=== PATIENT | male | born 1985 | race African-American/Black ===

== ENCOUNTER 2016-11-16 16:31 | Inpatient (IN) | payer SELFPAY ==
[~2016-11-16] VITALS: Ht 170.2 cm; Wt 48.4 kg
[~2016-11-16 16:31] MED LIST: ZOFRAN ODT4 MG/UDTAB PO
[2016-11-16 17:25] LABS: ABG CO2 ARTERIAL 19 mmol/L (21-27); ARTERIAL BLD GAS O2 SATURATION 99 % (95-98); ARTERIAL BLOOD GAS PCO2 26 mmHg (32-45); ARTERIAL PO2 143 mmHg (70-100); BICARBONATE 18 mmol/L (21-28); BLOOD GAS BASE EXCESS -4 mM/L (-/+3); PH 7.45 Units (7.35-7.45)
[2016-11-16 17:59] LABS: BASO % 0.2 % (0-2); HCT-HEMATOCRIT 44.7 % (36.0-53.5); HGB-HEMOGLOBIN 15.9 gm/dl (13.5-17.0); IMMATURE GRANULOCYTES ABSOLUTE 0.01 tho/cmm (0-0.03); IMMATURE GRANULOCYTES PERCENT 0.2 % (0-0.3); LYMPH % 20.3 % (20-45); MCH (MEAN CORPUSCULAR HGB) 32.4 pg (28.0-32.0); MCHC MEAN CORPUSCULAR HGB CONC 35.6 % (32.0-36.0); MCV (MEAN CELL VOLUME) 91.2 fl (82.0-96.0); MEAN PLATELET VOLUME 10.9 cmc (9.4-12.4); MONO % 5.8 % (0-12); MONOCYTE ABSOLUTE COUNT 0.3 tho/cmm (0.0-1.2); NEUTROPHIL ABSOLUTE COUNT 3.4 tho/cmm (1.6-8.0); NEUTROPHIL-AUTOMATED 3.4 tho/cmm (1.6-8.0); NEUTROPHILS % 73.5 % (40-80); PLATELET COUNT 165 tho/cmm (150-450); RED CELL DISTRIBUTION WIDTH 12.7 % (12.4-16.4); WHITE BLOOD COUNT 4.7 tho/cmm (4.0-10.0)
[2016-11-16 18:10] LABS: ALB/GLOB RATIO 1.2 (0.8-2.0); ALBUMIN 3.6 g/dl (3.5-5.0); ALKALINE PHOSPHATASE 54 U/L (33-138); ALT/SGPT 38 U/L (12-78); BILIRUBIN,TOTAL 0.9 mg/dl (0.0-1.5); BLOOD UREA NITROGEN 8 mg/dl (6-24); CALCIUM 8.1 mg/dl (8.5-10.5); CARBON DIOXIDE-VENOUS 18 mmol/L (22-32); CHLORIDE 118 mmol/l (96-110); CREATININE 1.04 mg/dl (0.60-1.30); GLUCOSE 115 mg/dL (70-110); PHOSPHOROUS 2.2 mg/dl (2.5-4.9); SODIUM 146 mmol/L (135-145); eGFR VALUE FOR BLACK >90 mL/Min
[2016-11-16 18:13] LABS: ANION GAP 14 mmol/L (0-20); AST/SGOT 32 U/L (10-40); MAGNESIUM 2.1 mg/dl (1.8-2.6); POTASSIUM 4.3 mmol/L (3.7-5.1)
[2016-11-16 19:26] LABS: INR 1.1 INR (0.9-1.1)
[2016-11-16 19:57] LABS: ACETAMINOPHEN LEVEL <2.0 ug/ml (10-30); SALICYLATE <2.8 mg/dl (2.8-20)
[2016-11-17] MEDS ORDERED: NO HOME MEDICATION (00:21)
[2016-11-17 05:51] LABS: ABG CO2 ARTERIAL 21 mmol/L (21-27); ARTERIAL BLD GAS O2 SATURATION 98 % (95-98); ARTERIAL BLOOD GAS PCO2 32 mmHg (32-45); ARTERIAL PO2 118 mmHg (70-100); BICARBONATE 20 mmol/L (21-28); BLOOD GAS BASE EXCESS -3 mM/L (-/+3); PH 7.42 Units (7.35-7.45)
--- NOTE | 2016-11-17 05:57 | NUR ---
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 LATER ON DURING MY SHIFT I GOT A CALL FROM OFFICER ALBA STATING THAT THE PATIENTS BLACK RIPPED UNDERSHIRT, BLACK BUTTON UP SHIRT AND BLACK JEANS ARE MISSING AND THAT THEY NEED IT FOR EVIDENCE. TOLD OFFICER THAT I WAS TOLD BY THE DAY SHIFT RN THAT THE OFFICERS HAD ALL OF THE PATIENTS CLOTHING. WILL PASS ON TODAYS DAY SHIFT RN TO HAVE THE CHARGE CALL YESTERDAYS AM NURSE TO VERIFY LOCATION OF PATIENTS BLACK RIPPED UNDERSHIRT, BLACK BUTTON UP SHIRT, AND BLACK JEANS.
[2016-11-17 07:57] LABS: BASO % 0.2 % (0-2); IMMATURE GRANULOCYTES ABSOLUTE 0.01 tho/cmm (0-0.03); IMMATURE GRANULOCYTES PERCENT 0.2 % (0-0.3); LYMPH % 11.3 % (20-45); LYMPH ABSOLUTE COUNT 0.5 tho/cmm (0.8-4.5); MCH (MEAN CORPUSCULAR HGB) 31.5 pg (28.0-32.0); MCHC MEAN CORPUSCULAR HGB CONC 34.2 % (32.0-36.0); MEAN PLATELET VOLUME 10.6 cmc (9.4-12.4); MONO % 9.1 % (0-12); MONOCYTE ABSOLUTE COUNT 0.4 tho/cmm (0.0-1.2); NEUTROPHIL ABSOLUTE COUNT 3.7 tho/cmm (1.6-8.0); NEUTROPHIL-AUTOMATED 3.7 tho/cmm (1.6-8.0); NEUTROPHILS % 79.2 % (40-80); PLATELET COUNT 110 tho/cmm (150-450); RED BLOOD COUNT 4.13 mil/cmm (4.40-5.70); RED CELL DISTRIBUTION WIDTH 13.1 % (12.4-16.4); WHITE BLOOD COUNT 4.6 tho/cmm (4.0-10.0)
[2016-11-17 08:08] LABS: ANION GAP 15 mmol/L (0-20); BLOOD UREA NITROGEN 14 mg/dl (6-24); CALCIUM 7.1 mg/dl (8.5-10.5); CARBON DIOXIDE-VENOUS 20 mmol/L (22-32); CHLORIDE 119 mmol/l (96-110); CREATININE 0.64 mg/dl (0.60-1.30); GLUCOSE 105 mg/dL (70-110); POTASSIUM 3.8 mmol/L (3.7-5.1); SODIUM 150 mmol/L (135-145); eGFR VALUE FOR BLACK >90 mL/Min
--- NOTE | 2016-11-17 18:25 | NUR ---
NOTIFIED ALBA WITH [employer]. PATIENT ADMITTED WITH NO PANTS, NO SHIRT - ONLY SOCKS, [employer] SHORTS, AND UNDERWEAR PER ADMITTING RN Bentley REDDY.
[2016-11-17 22:49] LABS: ANION GAP 10 mmol/L (0-20); BLOOD UREA NITROGEN 16 mg/dl (6-24); CALCIUM 7.8 mg/dl (8.5-10.5); CARBON DIOXIDE-VENOUS 22 mmol/L (22-32); CHLORIDE 115 mmol/l (96-110); CREATININE 0.84 mg/dl (0.60-1.30); GLUCOSE 111 mg/dL (70-110); SODIUM 143 mmol/L (135-145); eGFR VALUE FOR BLACK >90 mL/Min
[2016-11-18 06:27] LABS: ABG CO2 ARTERIAL 21 mmol/L (21-27); ARTERIAL BLD GAS O2 SATURATION 95 % (95-98); ARTERIAL BLOOD GAS PCO2 35 mmHg (32-45); ARTERIAL PO2 79 mmHg (70-100); BICARBONATE 20 mmol/L (21-28); BLOOD GAS BASE EXCESS -4 mM/L (-/+3); PH 7.37 Units (7.35-7.45)
[2016-11-18 07:11] LABS: BASO % 0.2 % (0-2); EOS % 0.8 % (0-7); EOSINOPHIL ABSOLUTE COUNT 0.1 tho/cmm (0.0-0.7); HCT-HEMATOCRIT 39.8 % (36.0-53.5); HGB-HEMOGLOBIN 13.9 gm/dl (13.5-17.0); IMMATURE GRANULOCYTES ABSOLUTE 0.01 tho/cmm (0-0.03); IMMATURE GRANULOCYTES PERCENT 0.2 % (0-0.3); LYMPH % 24.5 % (20-45); LYMPH ABSOLUTE COUNT 1.5 tho/cmm (0.8-4.5); MCH (MEAN CORPUSCULAR HGB) 32.2 pg (28.0-32.0); MCHC MEAN CORPUSCULAR HGB CONC 34.9 % (32.0-36.0); MCV (MEAN CELL VOLUME) 92.1 fl (82.0-96.0); MEAN PLATELET VOLUME 11.5 cmc (9.4-12.4); MONO % 15.2 % (0-12); MONOCYTE ABSOLUTE COUNT 0.9 tho/cmm (0.0-1.2); NEUTROPHIL ABSOLUTE COUNT 3.5 tho/cmm (1.6-8.0); NEUTROPHIL-AUTOMATED 3.5 tho/cmm (1.6-8.0); NEUTROPHILS % 59.1 % (40-80); PLATELET COUNT 101 tho/cmm (150-450); RED BLOOD COUNT 4.32 mil/cmm (4.40-5.70); RED CELL DISTRIBUTION WIDTH 13.3 % (12.4-16.4)
[2016-11-18 07:20] LABS: ANION GAP 9 mmol/L (0-20); BLOOD UREA NITROGEN 17 mg/dl (6-24); CALCIUM 7.9 mg/dl (8.5-10.5); CARBON DIOXIDE-VENOUS 22 mmol/L (22-32); CHLORIDE 114 mmol/l (96-110); GLUCOSE 106 mg/dL (70-110); POTASSIUM 4.1 mmol/L (3.7-5.1); SODIUM 141 mmol/L (135-145); eGFR VALUE FOR BLACK >90 mL/Min
[2016-11-18 10:16] LABS: ABG CO2 ARTERIAL 22 mmol/L (21-27); ARTERIAL BLD GAS O2 SATURATION 97 % (95-98); ARTERIAL BLOOD GAS PCO2 40 mmHg (32-45); ARTERIAL PO2 98 mmHg (70-100); BICARBONATE 21 mmol/L (21-28); BLOOD GAS BASE EXCESS -4 mM/L (-/+3); PH 7.33 Units (7.35-7.45)
[2016-11-19 04:04] LABS: EOS % 1.1 % (0-7); EOSINOPHIL ABSOLUTE COUNT 0.1 tho/cmm (0.0-0.7); HCT-HEMATOCRIT 36.7 % (36.0-53.5); HGB-HEMOGLOBIN 12.8 gm/dl (13.5-17.0); IMMATURE GRANULOCYTES ABSOLUTE 0.02 tho/cmm (0-0.03); IMMATURE GRANULOCYTES PERCENT 0.4 % (0-0.3); LYMPH % 16.8 % (20-45); LYMPH ABSOLUTE COUNT 0.8 tho/cmm (0.8-4.5); MCH (MEAN CORPUSCULAR HGB) 31.8 pg (28.0-32.0); MCHC MEAN CORPUSCULAR HGB CONC 34.9 % (32.0-36.0); MCV (MEAN CELL VOLUME) 91.1 fl (82.0-96.0); MEAN PLATELET VOLUME 11.5 cmc (9.4-12.4); MONO % 14.9 % (0-12); MONOCYTE ABSOLUTE COUNT 0.7 tho/cmm (0.0-1.2); NEUTROPHIL ABSOLUTE COUNT 3.1 tho/cmm (1.6-8.0); NEUTROPHIL-AUTOMATED 3.1 tho/cmm (1.6-8.0); NEUTROPHILS % 66.8 % (40-80); PLATELET COUNT 76 tho/cmm (150-450); RED BLOOD COUNT 4.03 mil/cmm (4.40-5.70); RED CELL DISTRIBUTION WIDTH 12.9 % (12.4-16.4); WHITE BLOOD COUNT 4.6 tho/cmm (4.0-10.0)
[2016-11-19 04:23] LABS: ANION GAP 8 mmol/L (0-20); BLOOD UREA NITROGEN 9 mg/dl (6-24); CALCIUM 7.6 mg/dl (8.5-10.5); CARBON DIOXIDE-VENOUS 25 mmol/L (22-32); CHLORIDE 113 mmol/l (96-110); GLUCOSE 98 mg/dL (70-110); POTASSIUM 3.8 mmol/L (3.7-5.1); SODIUM 142 mmol/L (135-145); eGFR VALUE FOR BLACK >90 mL/Min
[2016-11-19 19:44] LABS: EOS % 0.6 % (0-7); HGB-HEMOGLOBIN 12.1 gm/dl (13.5-17.0); IMMATURE GRANULOCYTES ABSOLUTE 0.01 tho/cmm (0-0.03); IMMATURE GRANULOCYTES PERCENT 0.2 % (0-0.3); LYMPH % 22.1 % (20-45); LYMPH ABSOLUTE COUNT 1.1 tho/cmm (0.8-4.5); MCHC MEAN CORPUSCULAR HGB CONC 35.6 % (32.0-36.0); MCV (MEAN CELL VOLUME) 89.9 fl (82.0-96.0); MEAN PLATELET VOLUME 11.2 cmc (9.4-12.4); MONO % 14.5 % (0-12); MONOCYTE ABSOLUTE COUNT 0.8 tho/cmm (0.0-1.2); NEUTROPHIL ABSOLUTE COUNT 3.2 tho/cmm (1.6-8.0); NEUTROPHIL-AUTOMATED 3.2 tho/cmm (1.6-8.0); NEUTROPHILS % 62.6 % (40-80); PLATELET COUNT 61 tho/cmm (150-450); RED BLOOD COUNT 3.78 mil/cmm (4.40-5.70); RED CELL DISTRIBUTION WIDTH 12.7 % (12.4-16.4); WHITE BLOOD COUNT 5.2 tho/cmm (4.0-10.0)
[2016-11-19 20:03] LABS: ALB/GLOB RATIO 0.6 (0.8-2.0); ALKALINE PHOSPHATASE 42 U/L (33-138); ALT/SGPT 48 U/L (12-78); ANION GAP 11 mmol/L (0-20); AST/SGOT 55 U/L (10-40); BILIRUBIN,TOTAL 0.4 mg/dl (0.0-1.5); BLOOD UREA NITROGEN 8 mg/dl (6-24); CALCIUM 7.7 mg/dl (8.5-10.5); CARBON DIOXIDE-VENOUS 26 mmol/L (22-32); CHLORIDE 110 mmol/l (96-110); CREATININE 0.71 mg/dl (0.60-1.30); GLUCOSE 103 mg/dL (70-110); MAGNESIUM 1.5 mg/dl (1.8-2.6); PHOSPHOROUS 2.6 mg/dl (2.5-4.9); POTASSIUM 3.5 mmol/L (3.7-5.1); SODIUM 143 mmol/L (135-145); eGFR VALUE FOR BLACK >90 mL/Min
[2016-11-20 01:24] LABS: EOS % 0.8 % (0-7); HCT-HEMATOCRIT 34.7 % (36.0-53.5); HGB-HEMOGLOBIN 12.3 gm/dl (13.5-17.0); IMMATURE GRANULOCYTES ABSOLUTE 0.02 tho/cmm (0-0.03); IMMATURE GRANULOCYTES PERCENT 0.4 % (0-0.3); LYMPH % 22.7 % (20-45); LYMPH ABSOLUTE COUNT 1.2 tho/cmm (0.8-4.5); MCH (MEAN CORPUSCULAR HGB) 31.9 pg (28.0-32.0); MCHC MEAN CORPUSCULAR HGB CONC 35.4 % (32.0-36.0); MCV (MEAN CELL VOLUME) 89.9 fl (82.0-96.0); MEAN PLATELET VOLUME 10.8 cmc (9.4-12.4); MONO % 13.9 % (0-12); MONOCYTE ABSOLUTE COUNT 0.7 tho/cmm (0.0-1.2); NEUTROPHIL ABSOLUTE COUNT 3.2 tho/cmm (1.6-8.0); NEUTROPHIL-AUTOMATED 3.2 tho/cmm (1.6-8.0); NEUTROPHILS % 62.2 % (40-80); PLATELET COUNT 65 tho/cmm (150-450); RED BLOOD COUNT 3.86 mil/cmm (4.40-5.70); RED CELL DISTRIBUTION WIDTH 12.7 % (12.4-16.4); WHITE BLOOD COUNT 5.1 tho/cmm (4.0-10.0)
[2016-11-20 01:37] LABS: ALB/GLOB RATIO 0.5 (0.8-2.0); ALBUMIN 1.9 g/dl (3.5-5.0); ALKALINE PHOSPHATASE 46 U/L (33-138); ALT/SGPT 50 U/L (12-78); ANION GAP 12 mmol/L (0-20); AST/SGOT 54 U/L (10-40); BILIRUBIN,TOTAL 0.4 mg/dl (0.0-1.5); BLOOD UREA NITROGEN 8 mg/dl (6-24); CALCIUM 7.6 mg/dl (8.5-10.5); CARBON DIOXIDE-VENOUS 25 mmol/L (22-32); CHLORIDE 113 mmol/l (96-110); CKMB 3.6 ng/ml (<3.6); CREATINE PHOSPHOKINASE (CPK) 500 U/L (35-232); CREATININE 0.71 mg/dl (0.60-1.30); GLUCOSE 94 mg/dL (70-110); MAGNESIUM 2.3 mg/dl (1.8-2.6); PHOSPHOROUS 2.4 mg/dl (2.5-4.9); SODIUM 145 mmol/L (135-145); eGFR VALUE FOR BLACK >90 mL/Min
[2016-11-20 01:38] LABS: POTASSIUM 4.8 mmol/L (3.7-5.1)
[2016-11-20 04:19] LABS: EOS % 0.9 % (0-7); HCT-HEMATOCRIT 33.5 % (36.0-53.5); HGB-HEMOGLOBIN 11.8 gm/dl (13.5-17.0); IMMATURE GRANULOCYTES ABSOLUTE 0.02 tho/cmm (0-0.03); IMMATURE GRANULOCYTES PERCENT 0.5 % (0-0.3); LYMPH % 21.3 % (20-45); LYMPH ABSOLUTE COUNT 0.9 tho/cmm (0.8-4.5); MCH (MEAN CORPUSCULAR HGB) 31.7 pg (28.0-32.0); MCHC MEAN CORPUSCULAR HGB CONC 35.2 % (32.0-36.0); MCV (MEAN CELL VOLUME) 90.1 fl (82.0-96.0); MEAN PLATELET VOLUME 11.6 cmc (9.4-12.4); MONO % 15.1 % (0-12); MONOCYTE ABSOLUTE COUNT 0.6 tho/cmm (0.0-1.2); NEUTROPHIL ABSOLUTE COUNT 2.6 tho/cmm (1.6-8.0); NEUTROPHIL-AUTOMATED 2.6 tho/cmm (1.6-8.0); NEUTROPHILS % 62.2 % (40-80); PLATELET COUNT 66 tho/cmm (150-450); RED BLOOD COUNT 3.72 mil/cmm (4.40-5.70); RED CELL DISTRIBUTION WIDTH 12.7 % (12.4-16.4); WHITE BLOOD COUNT 4.2 tho/cmm (4.0-10.0)
[2016-11-20 04:32] LABS: ANION GAP 8 mmol/L (0-20); BLOOD UREA NITROGEN 7 mg/dl (6-24); CALCIUM 7.7 mg/dl (8.5-10.5); CARBON DIOXIDE-VENOUS 25 mmol/L (22-32); CHLORIDE 112 mmol/l (96-110); CREATININE 0.67 mg/dl (0.60-1.30); GLUCOSE 101 mg/dL (70-110); SODIUM 141 mmol/L (135-145); eGFR VALUE FOR BLACK >90 mL/Min
[2016-11-20 04:44] LABS: POTASSIUM 3.5 mmol/L (3.7-5.1)
[2016-11-20 08:52] LABS: CKMB 2.3 ng/ml (<3.6)
[2016-11-20 15:15] LABS: BASO % 0.2 % (0-2); EOS % 0.7 % (0-7); HCT-HEMATOCRIT 33.8 % (36.0-53.5); HGB-HEMOGLOBIN 11.8 gm/dl (13.5-17.0); IMMATURE GRANULOCYTES ABSOLUTE 0.01 tho/cmm (0-0.03); IMMATURE GRANULOCYTES PERCENT 0.2 % (0-0.3); LYMPH % 21.7 % (20-45); MCH (MEAN CORPUSCULAR HGB) 31.5 pg (28.0-32.0); MCHC MEAN CORPUSCULAR HGB CONC 34.9 % (32.0-36.0); MCV (MEAN CELL VOLUME) 90.1 fl (82.0-96.0); MEAN PLATELET VOLUME 11.3 cmc (9.4-12.4); MONO % 17.2 % (0-12); MONOCYTE ABSOLUTE COUNT 0.8 tho/cmm (0.0-1.2); NEUTROPHIL ABSOLUTE COUNT 2.6 tho/cmm (1.6-8.0); NEUTROPHIL-AUTOMATED 2.6 tho/cmm (1.6-8.0); PLATELET COUNT 61 tho/cmm (150-450); RED BLOOD COUNT 3.75 mil/cmm (4.40-5.70); RED CELL DISTRIBUTION WIDTH 12.9 % (12.4-16.4); WHITE BLOOD COUNT 4.4 tho/cmm (4.0-10.0)
[2016-11-20 17:35] LABS: PLATELET COUNT 31 tho/cmm (150-450)
[2016-11-21 12:31] LABS: BASO % 0.3 % (0-2); EOS % 0.3 % (0-7); HCT-HEMATOCRIT 32.2 % (36.0-53.5); HGB-HEMOGLOBIN 11.3 gm/dl (13.5-17.0); IMMATURE GRANULOCYTES ABSOLUTE 0.01 tho/cmm (0-0.03); IMMATURE GRANULOCYTES PERCENT 0.3 % (0-0.3); LYMPH % 27.4 % (20-45); LYMPH ABSOLUTE COUNT 0.8 tho/cmm (0.8-4.5); MCH (MEAN CORPUSCULAR HGB) 31.6 pg (28.0-32.0); MCHC MEAN CORPUSCULAR HGB CONC 35.1 % (32.0-36.0); MCV (MEAN CELL VOLUME) 89.9 fl (82.0-96.0); MEAN PLATELET VOLUME 11.1 cmc (9.4-12.4); MONO % 19.8 % (0-12); MONOCYTE ABSOLUTE COUNT 0.6 tho/cmm (0.0-1.2); NEUTROPHIL ABSOLUTE COUNT 1.6 tho/cmm (1.6-8.0); NEUTROPHIL-AUTOMATED 1.6 tho/cmm (1.6-8.0); NEUTROPHILS % 51.9 % (40-80); PLATELET COUNT 76 tho/cmm (150-450); RED BLOOD COUNT 3.58 mil/cmm (4.40-5.70); RED CELL DISTRIBUTION WIDTH 12.6 % (12.4-16.4)
[2016-11-23] MEDS ORDERED: METOPROLOL TART25 M1 PO (16:31)
== END 2016-11-23 17:00 | DRG 917 ==
LOC: BURN 16:31
PROVIDERS: Internal Medicine Cardiovascular Disease; Nurse Practitioner; Physician Assistant Medical; Physician Assistant Surgical; ADMIT Surgery
PROC: 0DJ08ZZ Inspection of Upper Intestinal Tract, Via Natural or Artificial Opening Endoscopic (ICD-10-PCS; principal; 2016-11-16)
PROC: 5A1945Z Respiratory Ventilation, 24-96 Consecutive Hours (ICD-10-PCS; 2016-11-17)
PROC: 02HV33Z Insertion of Infusion Device into Superior Vena Cava, Percutaneous Approach (ICD-10-PCS; 2016-11-17)
PROC: 0BH17EZ Insertion of Endotracheal Airway into Trachea, Via Natural or Artificial Opening (ICD-10-PCS; 2016-11-17)
DX: T54.92XA Toxic effect of unspecified corrosive substance, intentional self-harm, initial encounter (principal); K29.01 Acute gastritis with bleeding; D61.818 Other pancytopenia; E83.42 Hypomagnesemia; E83.51 Hypocalcemia; E88.09 Other disorders of plasma-protein metabolism, not elsewhere classified; B19.10 Unspecified viral hepatitis B without hepatic coma; F17.210 Nicotine dependence, cigarettes, uncomplicated; I49.9 Cardiac arrhythmia, unspecified; R79.89 Other specified abnormal findings of blood chemistry; F32.9 Major depressive disorder, single episode, unspecified; R00.0 Tachycardia, unspecified
CPT/HCPCS: C1751; C8924; C8929; C9113; G0480; J0131; J0282; J0610; J1630; J2060; J2250; J2310; J2405; J3010; J3475; J3480; J3486; J7050